=== PATIENT | male | born 1985 | race Caucasian/White ===

== ENCOUNTER → 2018-04-06 | Outpatient (CLI) | payer BC ==
[~2018-04-06] MED LIST: IOPAMIDOL 300MG/ML 100 ML INFUS..BTL IV ONE
--- NOTE | 2018-04-06 09:09 | Diagnostic Imaging Report ---
PROCEDURE: INTRAVENOUS PYELOGRAM (IVP) COMPARISON: None. 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 There are no masses or abnormal calcifications. Minimal marginal osteophytes are present within the lumbar spine. After intravenous administration of 100 cc of Isovue 300, multiple frontal and oblique images of the abdomen and pelvis were obtained with and without compression. Post void images were also obtained. FINDINGS: The radiograph shows a nonobstructive bowel gas pattern. No calcifications project over the renal shadows or expected ureteral courses. Regional skeletal structures are intact. KIDNEYS: Renal position, contours, and sizes are normal. There is prompt bilateral excretion of contrast. The calices and renal pelves are normal in appearance bilaterally without evidence of dilatation or filling defect. URETERS: Both ureters are fully visualized in their course to the bladder with normal course and caliber. No evidence of irregularity or filling defect. BLADDER: Normal. No significant post void residual. OTHER: Negative. CONCLUSION: Normal intravenous pyelogram. Dictated by: Darrel Rossi M.D. on 04/06/2018 at 9:11 Electronically approved by: Darrel Rossi M.D. on 04/06/2018 at 9:11
== END ==
LOC: DX 07:29
PROVIDERS: ATTEND Urology
DX: R31.0 Gross hematuria (principal)
CPT/HCPCS: 74400; Q9967